=== PATIENT | female | born 1985 | race African-American/Black ===

== ENCOUNTER 2020-10-10 11:06 | Outpatient (CLI) | payer OTHER, SELFPAY ==
--- NOTE | ~2020-10-10 | US_ITS ---
EXAMINATION: US thyroid DATE: 10/10/2020 11:35 INDICATION: Artur's thyroiditis. TECHNIQUE: Multiple ultrasound images of the thyroid were obtained. COMPARISON: None. FINDINGS: The right thyroid lobe measures 4.9 x 2.1 x 2.0 cm. The left thyroid lobe measures 4.7 x 1.7 x 2.3 c m. The thyroid is diffusely heterogeneous and hypoechoic with increased vascularity. No discrete nod ule. IMPRESSION: 1. Heterogeneous, hypervascular thyroid, consistent with chronic lymphocytic (Artur) thyroiditis. Reviewed, dictated and finalized at location A. [employer] IMPRESSION: 1. Heterogeneous, hypervascular thyroid, consistent with chronic lymphocytic (H ashimoto) thyroiditis.
== END 2020-10-10 11:07 | disposition home or self-care (01) ==
DX: E06.3 Autoimmune thyroiditis (principal); R93.89 Abnormal findings on diagnostic imaging of other specified body structures
CPT/HCPCS: 76536